=== PATIENT | male | born 1940 | race African-American/Black ===

== ENCOUNTER 2016-03-27 10:30 | Emergency (ER) | payer MEDICARE ==
[2016-03-27 10:43] VITALS: TEMP 97.8; BMI 29.0
[2016-03-27 11:55] LABS: BASOPHIL 0.3 % (0-2.0); EOSINOPHIL 0.4 % (0-4.5); MCH 27.8 pg (25.7-33.7); MCHC 32.7 g/dl (32.0-35.9); MEAN CELL VOLUME 85.2 fl (80-96); MEAN PLT VOLUME 7.2 fl (7.5-11.1); NEUTROPHILS 87.4 % (42.8-82.8); PLATELET COUNT 253 K/MM3 (134-434); RDW 14.7 % (11.9-15.9); WHITE BLOOD COUNT 12.3 K/mm3 (4.0-10.0)
--- NOTE | 2016-03-27 11:58 | PDOC ---
[id number] 97 03/27/16 10:42 03/27/16 10:42 03/27/16 10:42 03/27/16 10:42 03/27/16 10:42 - Physical Exam Comments: 03/27/16 11:58 The patient was examined by [SAWYER Babin] under my direct supervision. I personally evaluated the patient. I concur with the above findings and the plan of care. ED Treatment Course - LABORATORY CBC & Chemistry Diagram: 03/27/16 11:42 03/27/16 11:42 - ADDITIONAL ORDERS Additional order review: 03/27/16 11:42 RBC 5.21 MCV 85.2 MCHC 32.7 RDW 14.7 MPV 7.2 L D Neutrophils % 87.4 H D Lymphocytes % 6.2 L D Monocytes % 5.7 Eosinophils % 0.4 D Basophils % 0.3 *DC/Admit/Observation/Transfer Diagnosis at time of Disposition: Enlarged prostate with urinary retention, Encounter for care or replacement of suprapubic tube - Discharge Dispostion Disposition: HOME Condition at time of disposition: Improved - Prescriptions Prescriptions: Cephalexin [Keflex] 250 mg PO QID #28 capsule - Referrals Referrals: Mary Sterling MD [Staff Physician] - - Patient Instructions Printed Discharge Instructions: How to Care for a Suprapubic Catheter Additional Instructions: Please take Keflex starting tomorrow and follow-up with Dr. Velasquez next week. Return to ED if you have increasing abdominal pain, decreased urine output, or fever.
[2016-03-27 12:08] LABS: INR 1.2 (0.82-1.09); PROTHROMBIN TIME (PATIENT) 13.3 SEC (9.98-11.88)
[2016-03-27 12:19] LABS: ANION GAP 10 (8-16); BILIRUBIN,TOTAL 0.4 mg/dL (0.2-1.0); CALCIUM 9.7 mg/dL (8.5-10.1); CO2 26 mmol/L (21-32); CREATININE 1.1 mg/dL (0.7-1.3); GLUCOSE,RANDOM 105 mg/dL (74-106); SGOT/AST 18 U/L (15-37); SGPT/ALT 21 U/L (12-78)
[2016-03-27 12:20] LABS: ALK PHOS 95 U/L (45-117)
[2016-03-27] MEDS ORDERED: morphine CARPU-JECT 4 MG/1 ML DISP.SYRIN IVPUSH ONE ×2 (12:32→13:20)
[2016-03-27] MEDS ORDERED: morphine CARPU-JECT 4 MG/1 ML DISP.SYRIN ONE ×2 (12:33→13:27)
--- NOTE | 2016-03-27 13:07 | PDOC ---
History of Present Illness - General Chief Complaint: Urinary Problem Stated Complaint: POST OP, PAIN/hematuria Time Seen by Provider: 03/27/16 10:50 History Source: Patient Exam Limitations: No Limitations - History of Present Illness Travel History: No Initial Comments: 03/27/16 12:02 75-year-old male with history of prostate CA presents with penile bleeding and unable to urinate since yesterday morning. Patient states had last Tuesday had a prostate procedure done by in the office that went uneventful. Patient states has had 3 procedures since his initial prostate cancer diagnosis 12 years ago and is followed routinely with his urologist. Patient denies fever , chills, nausea, back pain and states suprapubic pressure with penile pain. Timing/Duration: reports: constant, getting worse Quality: reports: fullness, sharpness Abdominal Pain Onset Location: reports: suprapubic Pain Radiation: reports: no radiation Activities at Onset: reports: none Aggravating Factors: improves with: None Alleviating Factors: improves with: None Past History - Past Medical History Allergies/Adverse Reactions: Allergies Allergy/AdvReac Type Severity Reaction Status Date / Time No Known Allergies Allergy Verified 03/27/16 10:43 Home Medications: Ambulatory Orders Amlodipine Besylate/Benazepril [Lotrel 10-20 mg Capsule] 1 each PO DAILY Aspirin [ASA -] 81 mg PO DAILY 11/21/13 Lisinopril [Prinivil] 20 mg PO DAILY 11/21/13 Metformin HCl [Glucophage -] 500 mg PO BID 11/21/13 Solifenacin Succinate [Vesicare] 5 mg PO DAILY 01/24/14 Atorvastatin Ca [Lipitor] 20 mg PO HS #30 tablet 09/02/15 Meclizine HCl [Antivert -] 25 mg PO Q6HPO PRN #42 tablet 09/02/15 Tamsulosin HCl [Flomax -] 0.4 mg PO DAILY 01/22/16 Cancer: Yes (Prostate) Cardiac Disorders: (TX, angioplasty) Diabetes: Yes (NIDDM) HTN: Yes - Family Disease History Family Disease History: Heart Disease: Father - Immunization History Immunization Up to Date: Yes - Psycho/Social/Smoking Cessation Hx Anxiety: No Suicidal Ideation: No Smoking Status: Yes Smoking History: Never smoked Have you smoked in the past 12 months: No Number of Cigarettes Smoked Daily: 0 Information on smoking cessation initiated: No Hx Alcohol Use: No Drug/Substance Use Hx: No Substance Use Type: None Hx Substance Use Treatment: No Patient Lives Alone: No Lives with/in: spouse/SO Review of Systems - Review of Systems Able to Perform ROS?: Yes Constitutional: No: Symptoms Reported Respiratory: No: Symptoms reported Cardiac (ROS): No: Symptoms Reported ABD/GI: Yes: Abdominal cramping (suprapubic) : Yes: Symptoms Reported, Discharge (bloody) Integumentary: No: Symptoms Reported Neurological: No: Symptoms reported Endocrine: No: Symptoms Reported Hematologic/Lymphatic: No: Symptoms Reported *Physical Exam - Vital Signs Last Vital Signs Temp Pulse Resp BP Pulse Ox 97.8 F 85 18 149/84 97 03/27/16 10:42 03/27/16 10:42 03/27/16 10:42 03/27/16 10:42 03/27/16 10:42 - Physical Exam General Appearance: Yes: Nourished, Appropriately Dressed. No: Apparent Distress HEENT: positive: EOMI, SATHISH. negative: Pale Conjunctivae Neck: positive: Supple Respiratory/Chest: positive: Lungs Clear, Normal Breath Sounds. negative: Respiratory Distress, Accessory Muscle Use Cardiovascular: positive: Regular Rhythm, Regular Rate. negative: Murmur Gastrointestinal/Abdominal: positive: Soft, Distended ( mid suprapubic), Tenderness (mid suprapubic) Male Genitalia: positive: discharge (bright red from urethral opening) Musculoskeletal: negative: CVA Tenderness Extremity: positive: Normal Capillary Refill. negative: Pedal Edema Integumentary: positive: Normal Color, Warm, Moist Neurologic: positive: Motor Strength 5/5 (ambulatory) ED Treatment Course - LABORATORY CBC & Chemistry Diagram: 03/27/16 11:42 03/27/16 11:42 - ADDITIONAL ORDERS Additional order review: Laboratory Results 03/27/16 03/27/16 03/27/16 11:42 11:42 11:42 INR 1.20 H Sodium 137 Potassium 5.2 H D Chloride 101 Carbon Dioxide 26 Anion Gap 10 BUN 24 H D Creatinine 1.1 D Creat Clearance w eGFR > 60 Random Glucose 105 Calcium 9.7 Total Bilirubin 0.4 D AST 18 D ALT 21 D Alkaline Phosphatase 95 Total Protein 8.0 Albumin 4.0 Blood Type O POSITIVE Antibody Screen Negative 03/27/16 11:42 RBC 5.21 MCV 85.2 MCHC 32.7 RDW 14.7 MPV 7.2 L D Neutrophils % 87.4 H D Lymphocytes % 6.2 L D Monocytes % 5.7 Eosinophils % 0.4 D Basophils % 0.3 - Medications Given in the ED: ED Medications Discontinued Medications Generic Name Dose Route Start Last Admin Trade Name Wilfrido PRN Reason Stop Dose Admin Morphine Sulfate 4 mg 03/27/16 12:32 03/27/16 12:35 Morphine Injection - IVPUSH 03/27/16 12:33 4 mg NOW ONE Administration Medical Decision Making - Medical Decision Making 03/27/16 12:08 Patient with history of prostate cancer under the care of Dr. Sterling and had received the prostate surgical procedure last week in the office but now complaining of inability to void and bloody discharge from his penis. Patient on exam had suprapubic distention and tenderness. Patient with noted bright red blood on his underwear. Attempted to use a 14 Q[place] Rosenthal catheter but unable to advance and noted bright red blood in the catheter. I contacted his urologist Dr. Sterling who will be here shortly and recommending a tray at bedside. I then attempted with a 20 [place] coud Rosenthal catheter but again unable to advance and when I irrigated with sterile water blood-tinged fluid came out around the catheter and urethral opening. Patient given morphine for pain control. 03/27/16 13:11 Laboratory Tests 08/31/15 09/02/15 03/27/16 21:15 06:00 11:42 WBC 12.3 H D Hgb 14.5 Hct 44.4 Neutrophils % 87.4 H D INR Sodium Potassium 4.7 4.3 Chloride Carbon Dioxide Anion Gap BUN Creatinine 0.9 0.9 Random Glucose Calcium Total Bilirubin Albumin Blood Type 03/27/16 03/27/16 03/27/16 11:42 11:42 11:42 WBC Hgb Hct Neutrophils % INR 1.20 H Sodium 137 Potassium 5.2 H D Chloride 101 Carbon Dioxide 26 Anion Gap 10 BUN 24 H D Creatinine 1.1 D Random Glucose 105 Calcium 9.7 Total Bilirubin 0.4 D Albumin 4.0 Blood Type O POSITIVE Dr. Sterling here at bedside. tray brought from surgical supply 03/27/16 14:00 Dr. Sterling attempted to place a catheter through the urethra but was unsuccessful. Patient had bedside suprapubic tube placement done without difficulty. Patient will be given a dose of Ancef and discharged home with Keflex. Patient otherwise comfortable with at bedside. 1 L of normal saline ordered. Patient requesting lunch tray 03/27/16 14:29 Laboratory Tests 03/27/16 14:00 Urine Protein 1+ H Urine Blood 3+ H Urine Nitrite Negative Ur Leukocyte Esterase Trace H Urine RBC 2124 Urine WBC 84 discharge home with Keflex *DC/Admit/Observation/Transfer Diagnosis at time of Disposition: Benign prostatic hypertrophy with urinary retention, Encounter for care or replacement of suprapubic tube - Discharge Dispostion Disposition: HOME Condition at time of disposition: Improved - Referrals Referrals: Mary Sterling MD [Staff Physician] - - Patient Instructions Printed Discharge Instructions: How to Care for a Suprapubic Catheter Additional Instructions: Please take Keflex starting tomorrow and follow-up with Dr. Velasquez next week. Return to ED if you have increasing abdominal pain, decreased urine output, or fever.
[2016-03-27] MEDS ORDERED: LIDOCAINE HCL 2% (20ML MULTI-DOSE VIAL) NR ONE (13:29)
[2016-03-27] MEDS ORDERED: FUROSEMIDE 40 MG/4 ML INJECTABLE VIAL ONE (13:46)
[2016-03-27] MEDS ORDERED: CEFAZOLIN 1 GM in DEXTROSE 5%-WATER - 50 ML IVPB ONE (14:00)
[2016-03-27] MEDS ORDERED: CEFAZOLIN (PRE-DOCKED) 50 ML IVPB ONE (14:08)
[2016-03-27] MEDS ORDERED: SODIUM CHLORIDE 1,000 ML IV STA (14:09)
[2016-03-27 14:16] LABS: URINE APPEARANCE SLCLOUDY; URINE BILIRUBIN NEGATIVE (NEGATIVE); URINE COLOR YELLOW; URINE GLUCOSE (UA) NEGATIVE (NEGATIVE); URINE KETONE NEGATIVE (NEGATIVE); URINE NITRITE NEGATIVE (NEGATIVE); URINE UROBILINOGEN NEGATIVE E.U./dl (0.2-1.0)
[2016-03-27 14:19] LABS: URINE BLOOD 3+ (NEGATIVE); URINE LEUK ESTERASE TRACE (NEGATIVE); URINE PROTEIN 1+ (NEGATIVE)
[2016-03-27 14:21] LABS: URINE MUCUS RARE; URINE RBC 2124 /hpf (0-3); URINE WBC 84 /hpf (3-5)
--- NOTE | 2016-03-27 14:52 | PN ---
Progress Note (short form) - Note Progress Note: 75 M came in w urinary retention, multiple attempts at passge of baker were unsuccessful. coude tip w manderian wire unsuccessful. filli-form and followers unsuccessful, therefore patient underwent a suprapubic cystotopy under local anesthesia. approximately 850 ccof clear urine was drained. pt was given 1g of ancef IV. pt will go home in cipro 500 mg po bid x10 days and will f/u in my office on tuesday for further followup and treatment.
[2016-03-27 15:03] VITALS: BP 158/74; PULSE 78
== END 2016-03-27 15:09 | disposition home or self-care (01) ==
LOC: JER 10:30
PROC: 3E0337Z Introduction of Electrolytic and Water Balance Substance into Peripheral Vein, Percutaneous Approach (ICD-10-PCS; principal; 2016-03-27)
PROC: 3E03329 Introduction of Other Anti-infective into Peripheral Vein, Percutaneous Approach (ICD-10-PCS; 2016-03-27)
PROC: 3E033NZ Introduction of Analgesics, Hypnotics, Sedatives into Peripheral Vein, Percutaneous Approach (ICD-10-PCS; 2016-03-27)
PROC: 0T9B70Z Drainage of Bladder with Drainage Device, Via Natural or Artificial Opening (ICD-10-PCS; 2016-03-27)
PROC: 0T9B30Z Drainage of Bladder with Drainage Device, Percutaneous Approach (ICD-10-PCS; 2016-03-27)
DX: N40.1 Benign prostatic hyperplasia with lower urinary tract symptoms (principal); C61 Malignant neoplasm of prostate; R33.8 Other retention of urine; I25.2 Old myocardial infarction; I10 Essential (primary) hypertension; E11.9 Type 2 diabetes mellitus without complications; Z79.84 Long term (current) use of oral hypoglycemic drugs; Z98.61 Coronary angioplasty status
CPT/HCPCS: 36415; 51040; 51702; 80053; 81003; 81015; 85025; 85610; 86850; 86900; 86901; 87086; 96361; 96365; 96375; 99283-25